=== PATIENT | male | born 1995 | race Caucasian/White ===

== ENCOUNTER 2018-10-27 20:41 | Emergency (ER) | payer OTHER ==
[~2018-10-27] VITALS: Ht 182.9 cm; Wt 86.4 kg
[2018-10-27 20:42] VITALS: BP 125/65
[2018-10-27] MEDS ORDERED: IBUP80TA PO (22:13)
== END 2018-10-27 22:22 | disposition home or self-care (01) ==
LOC: M ED 20:41
DX: T33.822A Superficial frostbite of left foot, initial encounter (principal); T33.522A Superficial frostbite of left hand, initial encounter; T33.99XA Superficial frostbite of other sites, initial encounter; X31.XXXA Exposure to excessive natural cold, initial encounter; Y92.89 Other specified places as the place of occurrence of the external cause; F17.200 Nicotine dependence, unspecified, uncomplicated